=== PATIENT | female | born 1950 | race Caucasian/White ===

== ENCOUNTER 2017-09-16 23:21 | Emergency (ER) | payer MEDICARE, MEDICAID ==
[~2017-09-16] VITALS: Ht 167.6 cm; Wt 53.0 kg
[~2017-09-16 23:21] MED LIST: ALBU18HF2 IH; COMIN IH; LORA0.5T PO; ROSU5TAB4 PO; TRAM50TA2 PO
[2017-09-17] MEDS ORDERED: LIDOcaine 1.5% w/epinephrine 1:200,000 5ml ampul ONE (01:13)
[2017-09-17] MEDS ORDERED: CEPH500C2 PO (01:41)
[2017-09-17] MEDS ORDERED: tetanus & diphtheria toxoid (Td) vaccine 0.5ml IMVAC ONE (01:50)
[2017-09-17] MEDS ORDERED: TETanus/Pertussis (Acell)/Diphther VAC/PF (Tdap-Adult) 0.5ml syringe IM ONE (02:05)
[2017-09-17 02:16] VITALS: BP 139/83
== END 2017-09-17 02:18 | disposition home or self-care (01) ==
LOC: ER 23:22
DX: S56.322A Laceration of extensor or abductor muscles, fascia and tendons of left thumb at forearm level, initial encounter (principal); Z88.0 Allergy status to penicillin; Z88.6 Allergy status to analgesic agent; Z79.899 Other long term (current) drug therapy; W25.XXXA Contact with sharp glass, initial encounter; Y93.89 Activity, other specified; Y92.89 Other specified places as the place of occurrence of the external cause; Y99.8 Other external cause status
CPT/HCPCS: 12001; 73140; 90471; 90715; 99284; A6449; J3490

== ENCOUNTER 2017-09-23 08:36 | Outpatient (CLI) | payer MEDICARE, MEDICAID ==
[~2017-09-23] VITALS: Ht 165.1 cm; Wt 52.4 kg
[2017-09-23 08:35] VITALS: BP 125/77
[~2017-09-23 08:36] MED LIST changes: +CEPH500C2 PO
[2017-09-24 12:35] VITALS: BP 125/77
== END 2017-09-23 09:28 | disposition home or self-care (01) ==
LOC: ORTHO 08:36
PROVIDERS: ATTEND Nurse Practitioner Family
DX: S66.221A Laceration of extensor muscle, fascia and tendon of right thumb at wrist and hand level, initial encounter (principal); I10 Essential (primary) hypertension; E78.00 Pure hypercholesterolemia, unspecified; J44.9 Chronic obstructive pulmonary disease, unspecified; F41.9 Anxiety disorder, unspecified; F17.200 Nicotine dependence, unspecified, uncomplicated; Z85.41 Personal history of malignant neoplasm of cervix uteri; Z88.0 Allergy status to penicillin; Z88.6 Allergy status to analgesic agent; W25.XXXA Contact with sharp glass, initial encounter; Y93.89 Activity, other specified; Y92.89 Other specified places as the place of occurrence of the external cause; Y99.8 Other external cause status
CPT/HCPCS: 99215

== ENCOUNTER 2017-09-29 09:57 | Outpatient (CLI) | payer MEDICARE, MEDICAID | END 2017-09-29 10:30 | disposition home or self-care (01) | LOC: ORTHO 09:57 | PROVIDERS: ATTEND Nurse Practitioner Family | DX: S66.221D Laceration of extensor muscle, fascia and tendon of right thumb at wrist and hand level, subsequent encounter (principal); J44.9 Chronic obstructive pulmonary disease, unspecified; I10 Essential (primary) hypertension; E78.00 Pure hypercholesterolemia, unspecified; Z88.0 Allergy status to penicillin; Z88.6 Allergy status to analgesic agent; W25.XXXD Contact with sharp glass, subsequent encounter | CPT/HCPCS: 99213; A6449 ==

== ENCOUNTER 2019-09-21 10:10 | Day surgery (SDC) | payer MEDICARE, MEDICAID ==
[2019-09-13 14:36] LABS: BASOPHILS % (AUTO) 0.5 % (0-1); EOSINOPHILS # (AUTO) 0.1 X10'3 (0-0.9); EOSINOPHILS % (AUTO) 1.7 % (0-6); LYMPHOCYTES # (AUTO) 1.5 X10'3 (1.1-4.8); LYMPHOCYTES % (AUTO) 25.3 % (21-51); MEAN CORPUSCULAR HEMOGLOBIN 33.8 PG (27.0-31.0); MEAN CORPUSCULAR HGB CONC 33.9 g/dL (33.0-36.5); MEAN CORPUSCULAR VOLUME 99.7 FL (78-98); MEAN PLATELET VOLUME 7.6 FL (7.4-10.4); MONOCYTES # (AUTO) 0.7 X10'3 (0-0.9); MONOCYTES % (AUTO) 12.2 % (2-12); NEUTROPHILS # (AUTO) 3.5 X10'3 (1.8-7.7); NEUTROPHILS % (AUTO) 60.3 % (42-75); PRE OP HEMOGLOBIN 12.9 g/dL (12.0-16.0); PRE OP PLATELET COUNT 266 X10'3 (140-440); RED BLOOD COUNT 3.81 X10'6 (4.20-5.60); RED CELL DISTRIBUTION WIDTH 13.5 % (11.5-14.5)
[2019-09-13 14:49] LABS: ALBUMIN 3.8 G/DL (3.4-5.0); ALBUMIN/GLOBULIN RATIO 1.2 (1.1-1.5); ALKALINE PHOSPHATASE 75 IU/L (46-116); BLOOD UREA NITROGEN 16 MG/DL (7-18); BUN/CREATININE RATIO 19.8 (6.6-38.0); CALCIUM 9.1 MG/DL (8.5-10.1); CHLORIDE 102 MMOL/L (99-107); CREATININE 0.81 MG/DL (0.40-0.90); PRE OP ALT 22 U/L (30-65); PRE OP ANION GAP 4 (8-16); PRE OP AST 20 U/L (10-37); PRE OP BILIRUB, TOTAL 0.6 MG/DL (0.0-1.0); PRE OP GLUCOSE 87 MG/DL (70-104); PRE OP POTASSIUM 4.2 MMOL/L (3.4-5.1); PRE OP SODIUM 138 MMOL/L (135-145); TOTAL CARBON DIOXIDE 31.8 MMOL/L (24-32); eGFR 71 ML/MIN
[2019-09-21] VITALS (8 sets, daily range): BP systolic 123–150; BP diastolic 62–72
[~2019-09-21] VITALS: Ht 165.1 cm; Wt 51.7 kg
[~2019-09-21 10:10] MED LIST changes: -ALBU18HF2 IH; +ATOR20TA PO; -CEPH500C2 PO; +LISI-604 PO; -LORA0.5T PO; +PANT20TA3 PO; -ROSU5TAB4 PO; +VANCOMYCIN INJ 1000 MG in NORMAL SALINE 250ml IV.SOLN IV ONE; +cefazolin/dext.iso 2gm/50ml 50 ML IV ONE; +famotidine 20mg tablet PO ONE; +ringers solution, lacted 1,000 ML IV SCH
[2019-09-21] MEDS ORDERED: BUPIVAcaine/PF 2.5 mg/ml (0.25%) 30ml vial ONE (11:53)
[2019-09-21] MEDS ORDERED: triamcinolone acetonide 40mg/ml inj ONE (11:53)
[2019-09-21] MEDS ORDERED: sevoflurane 250ml liquid IH ONE (12:19)
[2019-09-21] MEDS ORDERED: fentaNYL/PF 50MCG/1 ML 2ML syringe ONE (12:29)
[2019-09-21] MEDS ORDERED: midazolam 2 mg/2 ml injection ONE (12:37)
[2019-09-21] MEDS ORDERED: ondansetron/PF 4mg/2ml inj ONE (12:39)
[2019-09-21] MEDS ORDERED: dexamethasone sod phosphate 4mg/ml inj. ONE (12:39)
[2019-09-21] MEDS ORDERED: ringers solution, lacted 1,000 ML IV SCH (12:41)
[2019-09-21] MEDS ORDERED: proCHLORperazine 10 MG/2 ml inj IV PRN (12:45)
[2019-09-21] MEDS ORDERED: labetalol 20mg/4ml (5mg/ml) syringe IV PRN (12:45)
[2019-09-21] MEDS ORDERED: morphine 4 MG/ML inj SYRINge IV PRN (12:45)
[2019-09-21] MEDS ORDERED: acetaminophen 1,000mg/100ml IV 100 ML IV PRN (12:45)
[2019-09-21] MEDS ORDERED: HYDROmorphone inj. 0.5 MG/0.5 ML DISP.SYRIN IV PRN ×2 (12:45)
[2019-09-21] MEDS ORDERED: hydrALAZINE 20mg/ml inj. IV PRN (12:45)
[2019-09-21] MEDS ORDERED: ondansetron/PF 4mg/2ml inj IV PRN (12:45)
[2019-09-21] MEDS ORDERED: morphine 2 MG/ML inj. syringe IV PRN (12:45)
[2019-09-21] MEDS ORDERED: meperidine/PF 25mg/ml syringe IV PRN (12:45)
[2019-09-21] MEDS ORDERED: LIDOcaine 2% (20mg/ml) 5ml vial ONE (12:58)
[2019-09-21] MEDS ORDERED: propofol inj 20 ML IV ONE (12:58)
--- NOTE | 2019-09-21 13:40 | NUR ---
Received from OR via BED, accompanied by Anesthesiologist DR SEGURA and report given by Anesthesiolgist. PATIENT A&OX4, DENIES PAIN, V/S WNL, NEUROVASCULAR CHECKS INTACT, 20G PIV LUE, SCD ON, RIGHT KNEE DRESSING CDI
--- NOTE | 2019-09-21 14:30 | NUR ---
PATIENT A&OX4, DENIES PAIN, V/S WNL, NEUROVASCULAR CHECKS INTACT, 20G PIV LUE D/C, SCD OFF, RIGHT KNEE DRESSING CDI. PATIENT REFUSED CRUTCHES AND STATES SHE HAS A CANE AT HOME TO USE. I HAVE REVIEWED D/C INSTRUCTIONS WITH PATIENT AND FAMILY AND THEY HAVE VERBALIZED UNDERSTANDING. PATIENT D/C HOME WITH ALL BELONGINGS AND FAMILY GAVE TRANSPORT HOME.
== END 2019-09-21 14:30 | disposition home or self-care (01) ==
LOC: PAS 10:10
PROVIDERS: ATTEND Orthopaedic Surgery
DX: S83.241A Other tear of medial meniscus, current injury, right knee, initial encounter (principal); S83.281A Other tear of lateral meniscus, current injury, right knee, initial encounter; M94.261 Chondromalacia, right knee; M13.89 Other specified arthritis, multiple sites; J44.9 Chronic obstructive pulmonary disease, unspecified; F41.9 Anxiety disorder, unspecified; K21.9 Gastro-esophageal reflux disease without esophagitis; I10 Essential (primary) hypertension; Z87.891 Personal history of nicotine dependence; Z98.890 Other specified postprocedural states; Z88.0 Allergy status to penicillin; Z88.8 Allergy status to other drugs, medicaments and biological substances; Z79.899 Other long term (current) drug therapy; Z72.89 Other problems related to lifestyle; Z11.59 Encounter for screening for other viral diseases; X58.XXXA Exposure to other specified factors, initial encounter; Y93.89 Activity, other specified; Y92.89 Other specified places as the place of occurrence of the external cause; Y99.8 Other external cause status
CPT/HCPCS: 29873; 29879; 29880; 36415; 80053; 82948; 85025; 93005; J1100; J2001; J2250; J2405; J2704; J3010; J3301; J3370; J3490; U0003; A4215; A4618; A6250; A6449; A7000; J7120

== ENCOUNTER 2021-02-14 06:52 | Day surgery (SDC) | payer MEDICARE, MEDICAID ==
[2021-02-07 12:44] LABS: CLARITY,URINE CLEAR (Clear); COLOR,URINE YELLOW (Yellow); GLUCOSE, URINE NEGATIVE (Neg); KETONES,URINE NEGATIVE (Neg); PROTEIN,URINE NEGATIVE (Neg); UA COLLECTION TYPE CLN CATCH MIDSTREAM
[2021-02-07 12:45] LABS: LEUKOCYTE ESTERASE ,URINE TRACE (Neg); NITRITES, URINE NEGATIVE (Neg); OCCULT BLOOD,URINE NEGATIVE (Neg); UROBILINOGEN,URINE 0.2 E.U/dL (0.2-1.0)
[2021-02-07 12:49] LABS: BASOPHILS % (AUTO) 0.7 % (0-1); EOSINOPHILS # (AUTO) 0.1 X10'3 (0-0.9); EOSINOPHILS % (AUTO) 2.1 % (0-6); LYMPHOCYTES # (AUTO) 1.2 X10'3 (1.1-4.8); MEAN CORPUSCULAR HEMOGLOBIN 32.4 PG (27.0-31.0); MEAN CORPUSCULAR HGB CONC 33.1 g/dL (33.0-36.5); MEAN CORPUSCULAR VOLUME 97.6 FL (78-98); MEAN PLATELET VOLUME 7.9 FL (7.4-10.4); MONOCYTES # (AUTO) 0.6 X10'3 (0-0.9); MONOCYTES % (AUTO) 12.3 % (2-12); NEUTROPHILS # (AUTO) 2.8 X10'3 (1.8-7.7); NEUTROPHILS % (AUTO) 58.9 % (42-75); PRE OP HEMATOCRIT 43.6 % (35.0-45.0); PRE OP HEMOGLOBIN 14.4 g/dL (12.0-16.0); PRE OP PLATELET COUNT 280 X10'3 (140-440); RED BLOOD COUNT 4.46 X10'6 (4.20-5.60); RED CELL DISTRIBUTION WIDTH 12.4 % (11.5-14.5)
[2021-02-07 12:52] LABS: BACTERIA,URINE 1+ /HPF (Neg); MUCUS STRANDS FEW /LPF (Neg); RBC,URINE 0-2 /HPF (0-2); SQUAMOUS EPITHELIAL CELL,UR MANY /LPF (FEW); WBC,URINE 0-4 /HPF (0-4)
[2021-02-07 13:15] LABS: ALBUMIN/GLOBULIN RATIO 1.1 (1.1-1.5); ALKALINE PHOSPHATASE 79 IU/L (46-116); BLOOD UREA NITROGEN 16 MG/DL (7-18); BUN/CREATININE RATIO 23.2 (6.6-38.0); CALCIUM 9.5 MG/DL (8.5-10.1); CHLORIDE 101 MMOL/L (99-107); CREATININE 0.69 MG/DL (0.40-0.90); PRE OP ALT 29 U/L (30-65); PRE OP ANION GAP 5 (8-16); PRE OP AST 20 U/L (10-37); PRE OP BILIRUB, TOTAL 0.7 MG/DL (0.0-1.0); PRE OP GLUCOSE 93 MG/DL (70-104); PRE OP POTASSIUM 4.1 MMOL/L (3.4-5.1); PRE OP SODIUM 137 MMOL/L (135-145); TOTAL CARBON DIOXIDE 31.4 MMOL/L (24-32); TOTAL PROTEIN 7.7 G/DL (6.4-8.2); eGFR 84 ML/MIN
[~2021-02-14] VITALS: Ht 162.6 cm; Wt 50.7 kg
[2021-02-14] VITALS (7 sets, daily range): BP systolic 132–148; BP diastolic 66–81
[~2021-02-14 06:52] MED LIST changes: +ALBU18HF2 INH; -LISI-604 PO; -PANT20TA3 PO; -VANCOMYCIN INJ 1000 MG in NORMAL SALINE 250ml IV.SOLN IV ONE; +ceFAZolin 2gm in dextrose, iso 50 ML IV ONE; -cefazolin/dext.iso 2gm/50ml 50 ML IV ONE
[2021-02-14] MEDS ORDERED: HYDROmorphone/PF 0.2 MG/ML SYRINGE IV PRN ×2 (07:30)
[2021-02-14] MEDS ORDERED: ringers solution, lacted 1,000 ML IV SCH (07:30)
[2021-02-14] MEDS ORDERED: hydrALAZINE 20mg/ml inj. IV PRN (07:30)
[2021-02-14] MEDS ORDERED: labetalol 20mg/4ml (5mg/ml) syringe IV PRN (07:30)
[2021-02-14] MEDS ORDERED: acetaminophen 1,000mg/100ml IV 100 ML IV PRN (07:30)
[2021-02-14] MEDS ORDERED: morphine 2 MG/ML inj. syringe IV PRN (07:30)
[2021-02-14] MEDS ORDERED: morphine 4 MG/ML inj SYRINge IV PRN (07:30)
[2021-02-14] MEDS ORDERED: ondansetron/PF 4mg/2ml inj IV PRN (07:30)
[2021-02-14] MEDS ORDERED: proCHLORperazine 10 MG/2 ml inj IV PRN (07:30)
[2021-02-14] MEDS ORDERED: PANT-47 PO (08:19)
[2021-02-14] MEDS ORDERED: bacitracin 15gm ointment TP ONE ×2 (08:49→10:25)
[2021-02-14] MEDS ORDERED: BUPIVAcaine/PF 2.5 mg/ml (0.25%) 30ml vial ONE (08:49)
[2021-02-14] MEDS ORDERED: fentaNYL/PF 50MCG/1 ML 2ML syringe ONE (09:42)
[2021-02-14] MEDS ORDERED: midazolam 1 mg/ML 2ml injection ONE (09:42)
[2021-02-14] MEDS ORDERED: ondansetron/PF 4mg/2ml inj ONE (09:48)
[2021-02-14] MEDS ORDERED: LIDOcaine 2% (20mg/ml) 5ml vial ONE (09:48)
[2021-02-14] MEDS ORDERED: propofol inj 20 ML IV ONE ×2 (09:48→10:19)
[2021-02-14] MEDS ORDERED: dexamethasone sod phosphate 4mg/ml inj. ONE (09:48)
[2021-02-14] MEDS ORDERED: ePHEDrine 50MG/ML INJ. ONE (10:19)
[2021-02-14] MEDS ORDERED: 0.9 % SODIUM CHLORIDE 10 ML VIAL ONE (10:19)
--- NOTE | 2021-02-14 10:43 | NUR ---
Received from OR via [facility], accompanied by Anesthesiologist DR. SEGURA and report given by Anesthesiolgist AND OR NURSE. PT ARRIVED DROWSY ON 10L OF 02 VIA MASK. 20G IV TO LEFT ARM. RIGHT FOOT DRESSING C/D/I WITH BOOT ON OVER. LR RUNNING AT 100ML/HR. VSS. Addendum: 02/14/21 at 1103 by Abril Peters RN Amended: Links added.
--- NOTE | 2021-02-14 11:43 | NUR ---
ALL DISCHARGE CRITERIA HAS BEEN MET. VSS, DENIES PAIN OR NAUSEA AND ABLE TO SAFELY AMBULATE AND TRANSFER SELF. IV TAKEN OUT WITHOUT COMPLICATIONS. ALL DISCHARGE INSTRUCTIONS COVERED WITH PATIENT AND ALL QUESTIONS ANSWERED, COPY GIVEN TO PATIENT. EDUCATED ON ICE AND ELEVATION OF RIGHT LEG. NOTIFIED PT THAT PER DR. LITTLE TO WEAR BOOT AT ALL TIMES EVEN WHILE SLEEPING. PATIENT TAKEN OUT VIA WHEELCHAIR TO PERSONAL VEHICLE WITHOUT INCIDENT. Addendum: 02/14/21 at 1156 by Abril Peters RN Amended: Links added.
== END 2021-02-14 11:43 | disposition home or self-care (01) ==
LOC: PAS 06:52
PROVIDERS: ATTEND Podiatrist Foot & Ankle Surgery
DX: M20.21 Hallux rigidus, right foot (principal); M19.071 Primary osteoarthritis, right ankle and foot; I10 Essential (primary) hypertension; G25.81 Restless legs syndrome; J44.9 Chronic obstructive pulmonary disease, unspecified; E78.00 Pure hypercholesterolemia, unspecified; G47.00 Insomnia, unspecified; M19.041 Primary osteoarthritis, right hand; M19.031 Primary osteoarthritis, right wrist; M16.12 Unilateral primary osteoarthritis, left hip; M54.31 Sciatica, right side; M17.0 Bilateral primary osteoarthritis of knee; M18.0 Bilateral primary osteoarthritis of first carpometacarpal joints; K21.9 Gastro-esophageal reflux disease without esophagitis; Z72.89 Other problems related to lifestyle; Z20.822 Contact with and (suspected) exposure to COVID-19; Z79.899 Other long term (current) drug therapy; Z79.82 Long term (current) use of aspirin; Z88.0 Allergy status to penicillin; Z88.8 Allergy status to other drugs, medicaments and biological substances; Z98.890 Other specified postprocedural states; Z87.891 Personal history of nicotine dependence
CPT/HCPCS: 28750; 36415; 73620; 76000; 80053; 81001; 82948; 85025; 93005; A6223; C1713; J1100; J2001; J2250; J2405; J2704; J3010; J3490; U0003; U0005; Z7506; Z7508; Z7512; A4215; A4618; A6449; A7000; J7120

== ENCOUNTER 2021-02-14 18:40 | Emergency (ER) | payer MEDICARE, MEDICAID ==
[~2021-02-14] VITALS: Ht 165.1 cm; Wt 50.5 kg
[~2021-02-14 18:40] MED LIST changes: +PANT-47 PO; -ceFAZolin 2gm in dextrose, iso 50 ML IV ONE; -famotidine 20mg tablet PO ONE; -ringers solution, lacted 1,000 ML IV SCH
[2021-02-14 22:34] VITALS: BP 128/80
== END 2021-02-14 22:35 | disposition home or self-care (01) ==
LOC: ER 18:40
DX: M96.831 Postprocedural hemorrhage of a musculoskeletal structure following other procedure (principal); R06.02 Shortness of breath; E78.00 Pure hypercholesterolemia, unspecified; I10 Essential (primary) hypertension; J44.9 Chronic obstructive pulmonary disease, unspecified; M19.90 Unspecified osteoarthritis, unspecified site; G89.29 Other chronic pain; F41.9 Anxiety disorder, unspecified; Z85.41 Personal history of malignant neoplasm of cervix uteri; Z98.890 Other specified postprocedural states; Z72.89 Other problems related to lifestyle; Z88.0 Allergy status to penicillin; Z88.6 Allergy status to analgesic agent; Z79.899 Other long term (current) drug therapy
CPT/HCPCS: 99281; 99283

== ENCOUNTER → 2021-12-05 | Day surgery (SDC) | payer MEDICARE, MEDICAID ==
[2021-12-02 14:32] LABS: BASOPHILS % (AUTO) 0.5 % (0-1); EOSINOPHILS # (AUTO) 0.1 X10'3 (0-0.9); EOSINOPHILS % (AUTO) 0.9 % (0-6); LYMPHOCYTES # (AUTO) 1.4 X10'3 (1.1-4.8); LYMPHOCYTES % (AUTO) 24.4 % (21-51); MEAN CORPUSCULAR HEMOGLOBIN 31.9 PG (27.0-31.0); MEAN CORPUSCULAR HGB CONC 33.4 g/dL (33.0-36.5); MEAN CORPUSCULAR VOLUME 95.7 FL (78-98); MONOCYTES # (AUTO) 0.6 X10'3 (0-0.9); MONOCYTES % (AUTO) 11.2 % (2-12); NEUTROPHILS # (AUTO) 3.6 X10'3 (1.8-7.7); PRE OP HEMATOCRIT 40.8 % (35.0-45.0); PRE OP HEMOGLOBIN 13.6 g/dL (12.0-16.0); PRE OP PLATELET COUNT 260 X10'3 (140-440); RED BLOOD COUNT 4.26 X10'6 (4.20-5.60); RED CELL DISTRIBUTION WIDTH 13.6 % (11.5-14.5)
[2021-12-02 14:35] LABS: CLARITY,URINE SLIGHTLY CLOUDY (Clear); COLOR,URINE YELLOW (Yellow); GLUCOSE, URINE NEGATIVE (Neg); KETONES,URINE NEGATIVE (Neg); LEUKOCYTE ESTERASE ,URINE LARGE (Neg); NITRITES, URINE NEGATIVE (Neg); OCCULT BLOOD,URINE NEGATIVE (Neg); PH,URINE 5.5 (4.8-8.0); PROTEIN,URINE NEGATIVE (Neg); UROBILINOGEN,URINE 0.2 E.U/dL (0.2-1.0)
[2021-12-02 14:38] LABS: UA COLLECTION TYPE CLN CATCH MIDSTREAM
[2021-12-02 14:43] LABS: ALBUMIN 3.8 G/DL (3.4-5.0); ALKALINE PHOSPHATASE 86 IU/L (46-116); BLOOD UREA NITROGEN 15 MG/DL (7-18); BUN/CREATININE RATIO 19.7 (6.6-38.0); CALCIUM 8.4 MG/DL (8.5-10.1); CHLORIDE 103 MMOL/L (99-107); CREATININE 0.76 MG/DL (0.40-0.90); PRE OP ALT 24 U/L (30-65); PRE OP ANION GAP 8 (8-16); PRE OP AST 20 U/L (10-37); PRE OP BILIRUB, TOTAL 0.7 MG/DL (0.0-1.0); PRE OP GLUCOSE 137 MG/DL (70-104); PRE OP POTASSIUM 3.4 MMOL/L (3.4-5.1); PRE OP SODIUM 141 MMOL/L (135-145); TOTAL CARBON DIOXIDE 29.7 MMOL/L (24-32); TOTAL PROTEIN 7.5 G/DL (6.4-8.2); eGFR 75 ML/MIN
[2021-12-02 14:55] LABS: BACTERIA,URINE 1+ /HPF (Neg); SQUAMOUS EPITHELIAL CELL,UR MODERATE /LPF (FEW); WBC CLUMPS,URINE FEW /HPF (NEGATIVE); WBC,URINE 20-30 /HPF (0-4)
[~2021-12-05] VITALS: Ht 165.1 cm; Wt 52.2 kg
[~2021-12-05] MED LIST changes: +DICL20GE TOP; +ceFAZolin inj. 2,000 MG in dextrose 5%-water 100 ML IV ONE; +famotidine 20mg tablet PO ONE; +ringers solution, lacted 1,000 ML IV SCH
== END | disposition home or self-care (01) ==
LOC: PAS 07:59
PROVIDERS: ATTEND Podiatrist Foot & Ankle Surgery
DX: M21.629 Bunionette of unspecified foot (principal); Z53.8 Procedure and treatment not carried out for other reasons; M19.071 Primary osteoarthritis, right ankle and foot; M77.42 Metatarsalgia, left foot; Z98.890 Other specified postprocedural states; Z87.891 Personal history of nicotine dependence; Z88.0 Allergy status to penicillin; M19.90 Unspecified osteoarthritis, unspecified site; K21.9 Gastro-esophageal reflux disease without esophagitis; Z79.899 Other long term (current) drug therapy; Z72.89 Other problems related to lifestyle; Z88.8 Allergy status to other drugs, medicaments and biological substances; J44.9 Chronic obstructive pulmonary disease, unspecified; M16.11 Unilateral primary osteoarthritis, right hip
CPT/HCPCS: 36415; 80053; 81001; 85025; 87088; 87811; 93005; J0690; J7060; J7120

== ENCOUNTER 2023-12-30 05:41 | Day surgery (SDC) | payer MEDICARE, MEDICAID ==
[2023-12-23 11:00] LABS: BILIRUBIN,URINE NEGATIVE (Neg); CLARITY,URINE SLIGHTLY CLOUDY (Clear); COLOR,URINE YELLOW (Yellow); GLUCOSE, URINE NEGATIVE (Neg); KETONES,URINE NEGATIVE (Neg); LEUKOCYTE ESTERASE ,URINE TRACE (Neg); NITRITES, URINE NEGATIVE (Neg); OCCULT BLOOD,URINE NEGATIVE (Neg); PROTEIN,URINE NEGATIVE (Neg); UROBILINOGEN,URINE 0.2 E.U/dL (0.2-1.0)
[2023-12-23 11:02] LABS: BASOPHILS % (AUTO) 0.4 % (0-1); EOSINOPHILS # (AUTO) 0.1 X10'3 (0-0.9); EOSINOPHILS % (AUTO) 1.5 % (0-6); HEMATOCRIT 40.5 % (35.0-45.0); HEMOGLOBIN 13.6 g/dl (12.0-16.0); LYMPHOCYTES # (AUTO) 0.9 X10'3 (1.1-4.8); LYMPHOCYTES % (AUTO) 18.3 % (21-51); MEAN CORPUSCULAR HEMOGLOBIN 32.6 PG (27.0-31.0); MEAN CORPUSCULAR HGB CONC 33.5 g/dL (33.0-36.5); MEAN CORPUSCULAR VOLUME 97.4 FL (78-98); MEAN PLATELET VOLUME 7.6 FL (7.4-10.4); MONOCYTES # (AUTO) 0.6 X10'3 (0-0.9); MONOCYTES % (AUTO) 11.3 % (2-12); NEUTROPHILS # (AUTO) 3.5 X10'3 (1.8-7.7); NEUTROPHILS % (AUTO) 68.5 % (42-75); PLATELET COUNT 243 X10'3 (140-440); RED BLOOD COUNT 4.16 X10'6 (4.20-5.60); RED CELL DISTRIBUTION WIDTH 13.1 % (11.5-14.5); WHITE BLOOD COUNT 5.1 X10'3 (4.5-11.0)
[2023-12-23 11:10] LABS: UA COLLECTION TYPE CLN CATCH MIDSTREAM
[2023-12-23 11:12] LABS: BACTERIA,URINE 1+ /HPF (Neg); SQUAMOUS EPITHELIAL CELL,UR MANY /LPF (FEW)
[2023-12-23 11:13] LABS: RBC,URINE 0-2 /HPF (0-2); TRANSITIONAL EPI CELLS,URINE FEW /HPF; WBC,URINE 0-4 /HPF (0-4)
[2023-12-23 11:14] LABS: ALANINE AMINOTRANSFERASE 26 U/L (12-78); ALBUMIN 3.8 G/DL (3.4-5.0); ALKALINE PHOSPHATASE 86 IU/L (46-116); ANION GAP 7 (8-16); ASPARTATE AMINO TRANSFERASE 19 U/L (10-37); BILIRUBIN,TOTAL 0.7 MG/DL (0.1-1.0); BLOOD UREA NITROGEN 16 MG/DL (7-18); BUN/CREATININE RATIO 21.9 (10.0-20.0); CALCIUM 9.4 MG/DL (8.5-10.1); CHLORIDE 101 MMOL/L (99-107); CREATININE 0.73 MG/DL (0.40-0.90); GLUCOSE 88 MG/DL (70-104); POTASSIUM 4.6 MMOL/L (3.5-5.1); SODIUM 139 MMOL/L (135-145); TOTAL CARBON DIOXIDE 31.2 MMOL/L (24-32); TOTAL PROTEIN 7.5 G/DL (6.4-8.2); eGFR 78 ML/MIN
[~2023-12-30] VITALS: Ht 162.6 cm; Wt 52.1 kg
[~2023-12-30 05:41] MED LIST changes: +CALCIUM SUPPLEMENT; +COLLAGEN SUPPLEMENT; -DICL20GE TOP; +FLUT1BLS4 INH; +IPRA4AER PO; +LISI5TAB22; +MAGNESIUM; +MULTIVITAMIN DAILY; -ceFAZolin inj. 2,000 MG in dextrose 5%-water 100 ML IV ONE; -famotidine 20mg tablet PO ONE; -ringers solution, lacted 1,000 ML IV SCH
[2023-12-30 06:00] VITALS: BP 138/71; PULSE 73; RESP 16; TEMP 97.9; O2SAT 95
[2023-12-30] MEDS: famotidine 20mg tablet PO ONE (06:51)
[2023-12-30] MEDS: ringers solution, lacted 1,000 ML IV SCH (06:52)
[2023-12-30] MEDS: vancomycin/NS 1 GM in NS 250 ML IV ONE (06:52)
[2023-12-30] MEDS ORDERED: bacitracin 15gm ointment TP ONE (06:59)
[2023-12-30] MEDS ORDERED: BUPIVAcaine 2.5mg/ml inj 50ml vial (contains preservative) ONE ×2 (07:00→07:17)
[2023-12-30] MEDS ORDERED: cloNIDine hcl/PF 100mcg/ml inj ONE (07:11)
[2023-12-30] MEDS ORDERED: ringers solution, lacted 1,000 ML IV SCH (07:15)
[2023-12-30] MEDS ORDERED: meperidine/PF 25mg/ml syringe IV PRN (07:15)
[2023-12-30] MEDS ORDERED: labetalol 20mg/4ml (5mg/ml) syringe IV PRN (07:15)
[2023-12-30] MEDS ORDERED: proCHLORperazine 10 MG/2 ml inj IV PRN (07:15)
[2023-12-30] MEDS ORDERED: morphine 4 MG/ML inj SYRINge IV PRN (07:15)
[2023-12-30] MEDS ORDERED: fentaNYL/PF 50MCG/1 ML 2ML syringe IV PRN ×2 (07:15)
[2023-12-30] MEDS ORDERED: hydrALAZINE 20mg/ml inj. IV PRN (07:15)
[2023-12-30] MEDS ORDERED: morphine 2 MG/ML inj. syringe IV PRN (07:15)
[2023-12-30] MEDS ORDERED: ondansetron/PF 4mg/2ml inj IV PRN (07:15)
[2023-12-30] MEDS ORDERED: sevoflurane 250ml liquid IH ONE (07:22)
[2023-12-30] MEDS ORDERED: fentaNYL/PF 50MCG/1 ML 2ML syringe ONE (07:23)
[2023-12-30] MEDS ORDERED: ROPIVAcaine 0.5% (5mg/ml) 30ml vial ONE (08:01)
[2023-12-30] MEDS ORDERED: propofol inj 20 ML IV ONE (08:01)
[2023-12-30] MEDS ORDERED: midazolam 1 mg/ML 2ml injection ONE (08:01)
[2023-12-30] MEDS ORDERED: dexamethasone sod phosphate 4mg/ml inj. ONE (08:01)
[2023-12-30] MEDS ORDERED: LIDOcaine 2% (20mg/ml) 5ml vial ONE (08:01)
[2023-12-30] MEDS ORDERED: 0.9 % SODIUM CHLORIDE 10 ML VIAL ONE (08:01)
[2023-12-30] MEDS ORDERED: ondansetron/PF 4mg/2ml inj ONE (08:02)
[2023-12-30] MEDS: BUPIVAcaine 2.5mg/ml inj 50ml vial (contains preservative) SQ ONE (09:18)
[2023-12-30 09:40] VITALS: BP 148/72; PULSE 70; RESP 14; O2SAT 100
[2023-12-30 09:50] VITALS: BP 149/71; PULSE 75; RESP 18; O2SAT 93
[2023-12-30 10:00] VITALS: BP 149/71; PULSE 75; RESP 20; O2SAT 94
[2023-12-30 10:10] VITALS: BP 153/74; PULSE 74; RESP 19; O2SAT 96
[2023-12-30] MEDS: acetaminophen 1,000mg/100ml IV 100 ML IV ONE (10:50)
== END 2023-12-30 11:00 | disposition home or self-care (01) ==
LOC: PAS 05:41
PROVIDERS: ATTEND Podiatrist Foot & Ankle Surgery
DX: M20.42 Other hammer toe(s) (acquired), left foot (principal); M25.375 Other instability, left foot; M24.575 Contracture, left foot; G89.18 Other acute postprocedural pain; I10 Essential (primary) hypertension; J44.9 Chronic obstructive pulmonary disease, unspecified; M19.90 Unspecified osteoarthritis, unspecified site; Z85.118 Personal history of other malignant neoplasm of bronchus and lung; Z79.2 Long term (current) use of antibiotics; Z79.899 Other long term (current) drug therapy; Z98.890 Other specified postprocedural states; Z88.0 Allergy status to penicillin; Z88.6 Allergy status to analgesic agent
CPT/HCPCS: 28270; 28285; 28298; 36415; 64445; 64447; 73660; 80053; 81001; 82948; 85025; 87088; A4215; A4618; A6223; A6402; A6449; A7000; C1713; J0735; J1100; J2001; J2250; J2405; J2704; J2795; J3010; J3370; J3490; J7030; J7120; Z7506; Z7508; Z7512; Z7610

== ENCOUNTER 2024-01-27 20:23 | Emergency (ER) | payer MEDICARE, MEDICAID ==
[~2024-01-27] VITALS: Ht 162.6 cm; Wt 53.7 kg
[2024-01-27 20:37] VITALS: BP 147/75; PULSE 79; RESP 16; TEMP 98.8; O2SAT 95
== END 2024-01-27 22:42 | disposition left against medical advice (07) ==
LOC: ER 20:24
DX: R21 Rash and other nonspecific skin eruption (principal); Z53.21 Procedure and treatment not carried out due to patient leaving prior to being seen by health care provider